=== PATIENT | female | born 1995 | race Caucasian/White ===

== ENCOUNTER 2018-04-03 18:06 | Emergency (ER) | payer BC ==
[2018-04-03] MEDS: predniSONE 20 MG TAB PO (20:01)
[2018-04-03] MEDS: ACETAMINOPH W/CODEINE #3 TAB UD PO (20:02)
== END 2018-04-03 20:49 | disposition home or self-care (01) ==
LOC: M ED 18:06
DX: M72.2 Plantar fascial fibromatosis (principal); J45.909 Unspecified asthma, uncomplicated
CPT/HCPCS: 73630